=== PATIENT | female | born 1985 | race Two or more races ===

== ENCOUNTER 2020-01-19 08:12 | Emergency (ER) | payer SELFPAY ==
[~2020-01-19] VITALS: Ht 162.6 cm; Wt 52.2 kg
[2020-01-19 08:29] VITALS: BP 121/82
[2020-01-19 09:30] LABS: INFLUENZA A PATIENT NEGATIVE (NEGATIVE); INFLUENZA B PATIENT NEGATIVE (NEGATIVE)
--- NOTE | 2020-01-19 09:31 | PHYS DOC ---
Past Medical History Past Medical History: Asthma Past Surgical History: No Surgical History Smoking Status: Never Smoker Alcohol Use: None Drug Use: None Adult General Chief Complaint Chief Complaint: SORE THROAT HPI HPI Patient is a 34 year old female who presents sore throat 2 days. Reports painful swallowing. No shortness breath, nausea vomiting, cough, soft sweats. No chest pains. No rash, neck pain. No other acute symptoms or complaints.[] Review of Systems Review of Systems Review of symptoms as per history of present illness. All other review symptoms are negative. All other systems were reviewed and found to be within normal limits, except as documented in this note. Allergies Allergies Allergies Coded Allergies Type Severity Reaction Last Updated Verified No Known Drug Allergies 07/14/14 No Physical Exam Physical Exam Constitutional: Well developed, well nourished, no acute distress, non-toxic appearance. [] HENT: Normocephalic, atraumatic, bilateral external ears normal, oropharynx moist, mild erythema, nose normal. [] Eyes: PERRLA, EOMI, conjunctiva normal, no discharge. [] Neck: Normal range of motion, no tenderness, supple. [] Cardiovascular:Heart rate regular rhythm, no murmur [] Lungs & Thorax: Bilateral breath sounds clear to auscultation [] Abdomen: Bowel sounds normal. [] Skin: Warm, dry, no erythema, no rash. [] Neurologic: Alert and oriented X 3, normal motor function, normal sensory function, no focal deficits noted. [] Psychologic: Affect normal, judgement normal, mood normal. [] Current Patient Data Vital Signs Vital Signs Date Time Temp Pulse Resp B/P (MAP) Pulse Ox O2 Delivery O2 Flow Rate FiO2 01/19/20 08:29 98.2 81 18 121/82 (95) 99 Room Air 98.2 EKG EKG [] Radiology/Procedures Radiology/Procedures [] Course & Med Decision Making Course & Med Decision Making Pertinent Labs and Imaging studies reviewed. (See chart for details) [Strep and influenza negative. Recommend supportive care, self quarantine for 14 days, outpatient [place] virus testing. Term precautions reviewed.] Dragon Disclaimer Dragon Disclaimer This electronic medical record was generated, in whole or in part, using a voice recognition dictation system. Departure Departure Impression: Primary Impression: Pharyngitis Disposition: HOME, SELF-CARE Condition: STABLE Referrals: NO PCP (PCP) Patient Instructions: Viral and Bacterial Pharyngitis Additional Instructions: You were evaluated in the emergency department for sore throat. Influenza and strep tests were negative. The exact cause of your symptoms has not been determined but may be related the novel coronavirus. Please stay home self oriented in intake Tylenol ibuprofen for pain. Contact [place] [facility] to schedule outpatient coronavirus testing. Return to the ED if new or worsening symptoms. NICHOLAS FRAIRE DO Jan 19, 2020 09:31
== END 2020-01-19 09:40 | disposition home or self-care (01) ==
LOC: ER 08:12
DX: J02.9 Acute pharyngitis, unspecified (principal); J45.909 Unspecified asthma, uncomplicated
CPT/HCPCS: 87070; 87804; 87880; 99283-25